=== PATIENT | female | born 1970 | race Caucasian/White ===

== ENCOUNTER → 2021-06-10 | Outpatient (CLI) | payer OTHER ==
[2021-06-12 11:10] LABS: HPV 16 Negative (Negative); HPV 18 Negative (Negative); HPV OTHER HR TYPES Negative (Negative)
== END | disposition home or self-care (01) ==
LOC: LAB 13:54 → LAB SHORT 13:54
PROVIDERS: Obstetrics & Gynecology
DX: Z01.419 Encounter for gynecological examination (general) (routine) without abnormal findings (principal)
CPT/HCPCS: 87624; G0123

== ENCOUNTER 2021-08-11 14:42 | Emergency (ER) | payer OTHER ==
[~2021-08-11] VITALS: Ht 170.2 cm; Wt 77.1 kg
[2021-08-11] MEDS ORDERED: LORA.5 PO (14:54)
[2021-08-11] MEDS ORDERED: ATOM40 PO (14:54)
[2021-08-11] MEDS ORDERED: Prozac20 MG PO (14:54)
[2021-08-11] MEDS ORDERED: DICY20 PO (20:04)
== END 2021-08-11 14:55 | disposition home or self-care (01) ==
LOC: ER 14:42
DX: K59.00 Constipation, unspecified (principal); Z79.899 Other long term (current) drug therapy
CPT/HCPCS: 99283

== ENCOUNTER 2021-08-11 18:52 | Emergency (ER) | payer OTHER ==
[~2021-08-11] VITALS: Ht 170.2 cm; Wt 70.3 kg
[~2021-08-11 18:52] MED LIST: ATOM40 PO; LORA.5 PO; Prozac20 MG PO
[2021-08-11] MEDS ORDERED: DICY20 PO (20:04)
== END 2021-08-11 20:26 | disposition home or self-care (01) ==
LOC: ER 18:52
DX: R10.9 Unspecified abdominal pain (principal); K59.00 Constipation, unspecified; Z79.899 Other long term (current) drug therapy
CPT/HCPCS: A9270